=== PATIENT | male | born 1985 | race Caucasian/White ===

== ENCOUNTER 2018-02-22 08:23 | Emergency (ER) | payer MEDICAID ==
[2018-02-22] MEDS: morphine 4 MG/ML VIAL IV (09:33)
[2018-02-22] MEDS: DIPHTH/TET/ACEL PERTUSS (ADULT) 0.5 ML VIAL IM* (09:34)
[2018-02-22] MEDS: ONDANSETRON 4 MG INJ IV (09:34)
[2018-02-22] MEDS: SOD CHLORIDE 0.9% 1,000 ML IV (09:46)
[2018-02-22 09:49] LABS: ADD MAN DIFF? NO
[2018-02-22 09:51] LABS: BASOPHIL # 0.1 10^3/ul (0.0-0.1); BASOPHILS % 0.5 % (0.0-2.0); EOSINOPHILS # 0.2 10^3/ul (0.0-0.5); EOSINOPHILS % 1.1 % (0.0-7.0); HEMATOCRIT 38.8 % (42.0-52.0); HEMOGLOBIN 13.1 g/dl (14.0-18.0); LYMPHOCYTES # 1.3 10^3/ul (0.8-2.9); MEAN CORPUSCULAR HEMOGLOBIN 30.3 pg (29.0-33.0); MEAN CORPUSCULAR HGB CONC 33.8 g/dl (32.0-37.0); MEAN CORPUSCULAR VOLUME 89.6 fl (82.0-101.0); MEAN PLATELET VOLUME 9.5 fl (7.4-10.4); MONOCYTE # 0.9 10^3/ul (0.3-0.9); MONOCYTES % 7.1 % (0.0-11.0); NEUTROPHIL # 10.6 10^3/ul (1.6-7.5); NEUTROPHILS % 80.9 % (39.0-77.0); PLATELET COUNT 284 10^3/UL (140-415); RED BLOOD COUNT 4.33 10^6/ul (4.70-6.10); RED CELL DISTRIBUTION WIDTH 13.5 % (11.5-14.5)
[2018-02-22 09:51] LABS: WHITE BLOOD COUNT 13.2 10^3/ul (4.8-10.8)
[2018-02-22 10:12] LABS: ANION GAP 13 (8-16); BLOOD UREA NITROGEN 14 mg/dl (7-20); CARBON DIOXIDE 28 mmol/L (21-31); CHLORIDE 101 mmol/L (97-110); CREATININE 0.74 mg/dl (0.61-1.24); GLUCOSE 91 mg/dl (70-220); POTASSIUM 3.6 mmol/L (3.5-5.1); SODIUM 138 mmol/L (135-144)
[2018-02-22] MEDS: IOHEXOL 300MG/ML 150 ML BTL (10:39)
[2018-02-22] MEDS: SOD CHLORIDE 0.9% 100 ML (10:39)
== END 2018-02-22 11:59 ==
LOC: FTE 08:23
DX: S41.112A Laceration without foreign body of left upper arm, initial encounter (principal); S01.312A Laceration without foreign body of left ear, initial encounter; F17.210 Nicotine dependence, cigarettes, uncomplicated; R10.9 Unspecified abdominal pain; Y04.0XXA Assault by unarmed brawl or fight, initial encounter; Z23 Encounter for immunization
CPT/HCPCS: 12002; 36415; 70450; 70486; 71045; 72125; 73030; 73060; 73090; 73130-LT; 73562; 74177; 80048; 85025; 90471; 90715; 96374; 96375; 99285-25